=== PATIENT | female | born 1975 | race Caucasian/White ===

== ENCOUNTER 2022-06-15 20:12 | Inpatient (IN) | payer BC ==
[~2022-06-15] VITALS: Ht 172.7 cm; Wt 56.8 kg
[2022-06-15 20:43] LABS: BASOPHILS # (AUTO) 0.1 X10'3 (0-0.2); BASOPHILS % (AUTO) 0.9 % (0-1); EOSINOPHILS # (AUTO) 0.2 X10'3 (0-0.9); EOSINOPHILS % (AUTO) 1.7 % (0-6); HEMATOCRIT 30.9 % (35.0-45.0); HEMOGLOBIN 10.2 g/dl (12.0-16.0); LYMPHOCYTES # (AUTO) 1.2 X10'3 (1.1-4.8); LYMPHOCYTES % (AUTO) 13.8 % (21-51); MEAN CORPUSCULAR HEMOGLOBIN 29.7 PG (27.0-31.0); MEAN CORPUSCULAR HGB CONC 33.1 g/dL (33.0-36.5); MEAN CORPUSCULAR VOLUME 89.9 FL (78-98); MEAN PLATELET VOLUME 7.8 FL (7.4-10.4); MONOCYTES # (AUTO) 0.6 X10'3 (0-0.9); MONOCYTES % (AUTO) 6.9 % (2-12); NEUTROPHILS # (AUTO) 6.8 X10'3 (1.8-7.7); NEUTROPHILS % (AUTO) 76.7 % (42-75); PLATELET COUNT 332 X10'3 (140-440); RED BLOOD COUNT 3.43 X10'6 (4.20-5.60); WHITE BLOOD COUNT 8.9 X10'3 (4.5-11.0)
--- NOTE | 2022-06-15 20:54 | NUR ---
DR CROWDER IS AWARE OF PT. HE WILL ASSESS PT PRIOR TO ORDERING HEAD CT.
[2022-06-15 20:56] LABS: ALANINE AMINOTRANSFERASE 17 U/L (12-78); ALBUMIN 3.9 G/DL (3.4-5.0); ALBUMIN/GLOBULIN RATIO 1.2 (1.1-1.5); ALKALINE PHOSPHATASE 64 IU/L (46-116); ANION GAP 8 (8-16); ASPARTATE AMINO TRANSFERASE 18 U/L (10-37); BILIRUBIN,TOTAL 0.4 MG/DL (0.1-1.0); BLOOD UREA NITROGEN 12 MG/DL (7-18); CHLORIDE 102 MMOL/L (99-107); CREATININE 0.75 MG/DL (0.40-0.90); GLUCOSE 99 MG/DL (70-104); POTASSIUM 3.4 MMOL/L (3.5-5.1); SODIUM 139 MMOL/L (135-145); TOTAL CARBON DIOXIDE 28.9 MMOL/L (24-32); TOTAL PROTEIN 7.1 G/DL (6.4-8.2); eGFR 82 ML/MIN
[2022-06-15 21:00] LABS: LIPASE 113 U/L (73-393)
[2022-06-15 22:19] LABS: CLARITY,URINE SLIGHTLY CLOUDY (Clear); GLUCOSE, URINE NEGATIVE (Neg); KETONES,URINE 15 mg/dl (Neg); LEUKOCYTE ESTERASE ,URINE NEGATIVE (Neg); NITRITES, URINE NEGATIVE (Neg); OCCULT BLOOD,URINE LARGE (Neg); PROTEIN,URINE NEGATIVE (Neg); UROBILINOGEN,URINE 0.2 E.U/dL (0.2-1.0)
[2022-06-15 22:23] LABS: URINE HCG NEGATIVE (NEG)
[2022-06-15 22:24] LABS: COLOR,URINE PINK (Yellow); UA COLLECTION TYPE CLN CATCH MIDSTREAM
[2022-06-15 22:25] LABS: RBC,URINE TNTC /HPF (0-2); SQUAMOUS EPITHELIAL CELL,UR MODERATE /LPF (FEW)
[2022-06-15 22:26] LABS: BACTERIA,URINE FEW /HPF (Neg); WBC,URINE 0-4 /HPF (0-4)
[2022-06-15] MEDS ORDERED: meclizine 12.5mg tablet PO ONE (22:55)
[2022-06-15] MEDS ORDERED: NO HOME MEDS (23:48)
[2022-06-16] MEDS ORDERED: iohexol 350MG/ML 100ml bottle IV ONE (00:03)
--- NOTE | 2022-06-16 03:25 | NUR ---
PT REFUSING CONTINUOUS VS MONITOR TX
[2022-06-16] MEDS ORDERED: ondansetron/PF 4mg/2ml inj IV PRN (04:15)
[2022-06-16] MEDS ORDERED: mag hydrox/Alum hydrox/simeth 30ml oral suspension PO PRN (04:15)
[2022-06-16] MEDS ORDERED: normal saline 1000ml 1,000 ML IV SCH (04:15)
[2022-06-16] MEDS ORDERED: magnesium hydroxide 30ml (MOM) UD suspension PO PRN (04:15)
[2022-06-16] MEDS ORDERED: acetaminophen 325mg tablet PO PRN (04:15)
--- NOTE | 2022-06-16 06:25 | NUR ---
PT REFUSING ALL MEDICATIONS EXCEPT NS AND TYLENOL
--- NOTE | 2022-06-16 06:46 | NUR ---
Report given to KATHE Palafox, pt to go to room 0042O
[2022-06-16 07:12] VITALS: BP 116/52
[2022-06-16] MEDS ORDERED: docusate sod 100mg capsule PO SCH (08:00)
[2022-06-16] MEDS ORDERED: magnesium 4gm in 100ml NS 100 ML IV PRN (08:25)
[2022-06-16] MEDS ORDERED: PERFLUTREN PROTEIN-A MICROSPHR (Optison) 0.22 MG/ML 3ML VIAL IV ONE (08:25)
[2022-06-16] MEDS ORDERED: magnesium Cl slow-release 64mg tablet PO PRN (08:25)
[2022-06-16] MEDS ORDERED: potassium CL 10mEq/100ml bag 100 ML IV PRN (08:25)
[2022-06-16] MEDS ORDERED: potassium Cl 20 mEq SR tablet PO PRN ×2 (08:25)
[2022-06-16 10:00] VITALS: BP 127/52
[2022-06-16] MEDS ORDERED: pantoprazole 40MG/NS 100ML BAG 100 ML IV SCH (12:45)
[2022-06-16 16:16] LABS: OCCULT BLOOD STOOL NEGATIVE (Neg)
--- NOTE | 2022-06-16 18:00 | NUR ---
Patient discharge home, discharge information was reviewed with patient, whom verbalize understanding. Staff assisted patient to personal vehicle with all belongings.
--- NOTE | 2022-06-16 18:02 | NUR ---
CLINICAL INFORMATION SYSTEMS DIRECTOR documentation: I have reviewed and agree with all interventions, assessments performed and documented by Vivienne.
[2022-06-16] MEDS ORDERED: K and/or MAG REPLACEMENT MC SCH (20:00)
== END 2022-06-16 17:55 | disposition home or self-care (01) | DRG 149 ==
LOC: ER 20:13 → ED HOLD 06-16 04:15 → ORTHO 4S 06-16 07:10
PROVIDERS: ADMIT Internal Medicine; ATTEND Family Medicine
PROC: B3251ZZ Computerized Tomography (CT Scan) of Bilateral Common Carotid Arteries using Low Osmolar Contrast (ICD-10-PCS; principal; 2022-06-16)
PROC: B32G1ZZ Computerized Tomography (CT Scan) of Bilateral Vertebral Arteries using Low Osmolar Contrast (ICD-10-PCS; 2022-06-16)
PROC: B32R1ZZ Computerized Tomography (CT Scan) of Intracranial Arteries using Low Osmolar Contrast (ICD-10-PCS; 2022-06-16)
PROC: B3281ZZ Computerized Tomography (CT Scan) of Bilateral Internal Carotid Arteries using Low Osmolar Contrast (ICD-10-PCS; 2022-06-16)
DX: R42 Dizziness and giddiness (principal); K92.0 Hematemesis; D64.9 Anemia, unspecified; N93.8 Other specified abnormal uterine and vaginal bleeding; R19.5 Other fecal abnormalities; R31.9 Hematuria, unspecified; Z88.9 Allergy status to unspecified drugs, medicaments and biological substances
CPT/HCPCS: 36415; 70496; 70498; 70551; 71045; 80053; 81001; 81025; 82272; 82728; 82948; 83540; 83550; 83690; 84443; 84484; 85025; 93005; 93306; 99285; G0378; J3490; J7030; Q9967